=== PATIENT | male | born 1980 | race Two or more races ===

== ENCOUNTER 2023-04-09 07:30 | Emergency (ER) | payer OTHER ==
[~2023-04-09] VITALS: Ht 175.3 cm; Wt 90.9 kg
[2023-04-09 07:31] VITALS: BP_DIAS 105
[2023-04-09] MEDS ORDERED: amLODIPine 5mg tablet PO ONE (07:50)
[2023-04-09 08:08] VITALS: BP_SYST 171
== END 2023-04-09 08:09 ==
LOC: ER 07:31
DX: F10.129 Alcohol abuse with intoxication, unspecified (principal); V89.2XXA Person injured in unspecified motor-vehicle accident, traffic, initial encounter; Y93.89 Activity, other specified; Y92.89 Other specified places as the place of occurrence of the external cause; Y99.8 Other external cause status; Y90.9 Presence of alcohol in blood, level not specified
CPT/HCPCS: 99283